=== PATIENT | male | born 1940 | race Caucasian/White ===

== ENCOUNTER 2022-08-11 14:56 | Outpatient (CLI) | payer MEDICARE, BC, SELFPAY | END 2022-08-11 14:57 | disposition home or self-care (01) | PROVIDERS: PCP Family Medicine; Visit Provider Specialist | DX: C44.229 Squamous cell carcinoma of skin of left ear and external auricular canal (principal) | CPT/HCPCS: 88305 ==

== ENCOUNTER 2024-05-16 14:48 | Outpatient (CLI) | payer MEDICARE, BC, SELFPAY | END 2024-05-16 14:49 | disposition home or self-care (01) | LOC: CHSLAB 14:59 | PROVIDERS: PCP Family Medicine; Visit Provider Specialist | DX: C44.229 Squamous cell carcinoma of skin of left ear and external auricular canal (principal) | CPT/HCPCS: 88305 ==